=== PATIENT | male | born 1960 ===

== ENCOUNTER → 2016-11-29 | Outpatient (CLI) | payer BC, OTHER | END | disposition home or self-care (01) | LOC: GMAB 13:15 | PROVIDERS: ATTEND Family Medicine | DX: M79.1 Myalgia (principal); Z00.01 Encounter for general adult medical examination with abnormal findings ==

== ENCOUNTER → 2016-11-30 | Outpatient (CLI) | payer OTHER, BC ==
--- NOTE | 2016-12-01 08:57 | US ---
EXAM DESCRIPTION: Venous,Lower Extremity LT CLINICAL HISTORY: PEDAL EDEMA, LOCALIZED EDEMA COMPARISON: None Available. TECHNIQUE: Left lower extremity venous ultrasound was performed. Static david scale, color and spectral doppler images were saved to the patients medical record. FINDINGS: There is no DVT identified. There is normal color flow observed with good flow augmentation. All deep veins compress normally. IMPRESSION: Negative for DVT within the left lower extremity Electronically signed by: Juan Muñoz MD 12/01/2016 8:56 AM CDT
== END | disposition home or self-care (01) ==
LOC: US 14:40
PROVIDERS: ATTEND Family Medicine
DX: R60.0 Localized edema (principal)

== ENCOUNTER → 2017-01-10 | Outpatient (CLI) | payer BC | END | disposition home or self-care (01) | LOC: SL 20:30 | PROVIDERS: ATTEND Family Medicine | DX: G47.33 Obstructive sleep apnea (adult) (pediatric) (principal); R06.83 Snoring; F51.05 Insomnia due to other mental disorder ==

== ENCOUNTER 2017-02-02 06:01 | Day surgery (SDC) | payer BC ==
[2017-02-02] MEDS ORDERED: LACTATED RINGERS 1,000 ML ONE (06:26)
--- NOTE | 2017-02-02 09:12 | OP ---
DATE OF PROCEDURE: 02/02/17 PREPROCEDURE DIAGNOSIS: 1. Colorectal cancer screening in a patient at increased risk due to having a family history with a first degree relative, his mother, with colon cancer less than 60 years old. POSTPROCEDURE DIAGNOSIS: 1. Diverticulosis. 2. Internal hemorrhoids. PROCEDURE: 1. Colonoscopy. SURGEON: José Shipman MD. SEDATION: Monitored anesthesia care. ESTIMATED BLOOD LOSS: 0 mL. PROCEDURE: Informed consent was obtained prior to sedation. The preprocedure cardiopulmonary assessment was satisfactory. The patient was brought to the Endoscopy Suite and placed in the left lateral decubitus position. The patient was then sedated by the anesthesia team. Perianal and digital rectal exam revealed no abnormalities. The tip of the Olympus colonoscope was inserted into the rectum and advanced under direct visualization to the terminal ileum. The cecum was identified by the presence of the appendiceal orifice and ileocecal valve. Preparation of the colon was good. Upon reaching the terminal ileum, the endoscope was slowly withdrawn from the patient with careful attention paid to the entire colonic mucosa for the identification of any flat polyps or small vascular lesions. In the sigmoid colon, there was moderate diverticulosis. A retroflexed view of the anal verge showed small internal hemorrhoids. The endoscope was then withdrawn from the patient and the procedure terminated. RECOMMENDATION: 1. Discharge the patient home with escort. 2. Resume regular activities. 3. Advance to regular diet. 4. Repeat colonoscopy in five years due to his increased risk of cancer from his significant family history. #[id number] [facility]
[2017-02-02 11:00] VITALS: BP 138/86; TEMP 97.2; O2SAT 94
[2017-02-02] MEDS ORDERED: PROPOFOL 200 MG/20 ML VIAL IV ONE (12:00)
== END 2017-02-02 10:05 | disposition home or self-care (01) ==
LOC: AMB 06:01
PROVIDERS: ATTEND Internal Medicine Gastroenterology
DX: Z12.11 Encounter for screening for malignant neoplasm of colon (principal); K57.30 Diverticulosis of large intestine without perforation or abscess without bleeding; K64.8 Other hemorrhoids; E66.9 Obesity, unspecified; Z80.0 Family history of malignant neoplasm of digestive organs; Z87.891 Personal history of nicotine dependence; Z68.41 Body mass index [BMI] 40.0-44.9, adult
CPT/HCPCS: 00810; 45378; J3490; J7120

== ENCOUNTER → 2017-11-21 | Outpatient (CLI) | payer BC | LOC: SL 20:14 | PROVIDERS: ATTEND Family Medicine | DX: G47.33 Obstructive sleep apnea (adult) (pediatric) (principal); I10 Essential (primary) hypertension ==

== ENCOUNTER → 2018-06-22 | Outpatient (CLI) | payer BC | LOC: GMAE 12:00 | PROVIDERS: ATTEND Family Medicine | DX: Z00.00 Encounter for general adult medical examination without abnormal findings (principal); Z11.59 Encounter for screening for other viral diseases ==

== ENCOUNTER 2020-10-17 07:08 | Emergency (ER) | payer BC ==
[2020-10-17] MEDS ORDERED: PROMETHAZINE HCL 25 MG TAB PO ONE (07:17)
--- NOTE | 2020-10-17 08:15 | CT ---
EXAM DESCRIPTION: Head CLINICAL HISTORY: dizzziness 3days COMPARISON: None TECHNIQUE: Noncontrast transaxial CT images of the head are obtained from base to vertex. This exam was performed according to our departmental dose-optimization program, which includes automated exposure control, adjustment of the mA and/or kV according to patient size and/or use of iterative reconstruction technique. FINDINGS: The midline structures are not displaced. The sulci are age appropriate. The lateral, third, and fourth ventricles are normal in size, shape, and anatomic positioning. There is no evidence of mass, mass effect, hydrocephalus, or acute intracranial hemorrhage. No abnormal extra axial fluid collections are seen. Normal welsh-white differentiation is seen. The visualized bone windows show no depressed skull fracture or significant abnormality. The visualized paranasal sinuses shows mild mucosal thickening in the ethmoid and sphenoid sinuses. Frontal sinuses shows nondevelopment. Mastoid air cells are clear. IMPRESSION: 1. No acute abnormality is seen on noncontrast CT of the head. 2. Mild subacute to chronic ethmoid and sphenoid sinusitis Electronically signed by: Hung Christopher MD 10/17/2020 8:14 AM [facility]
--- NOTE | 2020-10-17 08:18 | RAD ---
EXAM DESCRIPTION: Abdomen Series CLINICAL HISTORY: dizz[place], [place] COMPARISON: Chest x-ray September 06, 2019. FINDINGS: AP supine and upright views of the abdomen show a nonspecific, nonobstructive bowel gas pattern with no evidence for free intraperitoneal air. No air-filled dilated loops of small bowel are seen. No significant air-fluid levels are identified. No obvious organomegaly is seen. No abnormal calcifications are seen in the expected location of the renal collecting systems. Increased volume of stool in the right transverse colon is seen. Single view of the chest shows cardiac silhouette and pulmonary vasculature to be within normal limits. Lungs are normally aerated and clear. Mild right apical pleural thickening without obvious bone destructive changes. This is stable from previous. Moderate right and mild left osteoarthritic changes of the hips are seen. Facet arthropathy is noted right greater than left at the L4-S1 levels. IMPRESSION: Nonspecific abdominal series Mild colon constipation or obstipation. Electronically signed by: Hung Christopher MD 10/17/2020 8:17 AM [facility]
[2020-10-17] MEDS ORDERED: SODIUM CHLORIDE 0.9% 1000ML 500 ML IVS ONE (09:00)
[2020-10-17] MEDS ORDERED: ACETYLCYSTEIN 20 % 6,000 MG/30 ML VIAL PO ONE (09:01)
[2020-10-17] MEDS ORDERED: LISINOPRIL 10 MG TAB PO ONE (09:02)
--- NOTE | 2020-10-17 10:31 | CT ---
EXAM DESCRIPTION: CTA Neck: Computed Tomography. CLINICAL HISTORY: dizziness 3 days COMPARISON: CTA of the head with IV contrast. TECHNIQUE: Spiral, axial 0.6 x 1.3 mm scans through the neck soft tissues after bolus infusion of IV contrast. 2.0 mm sagittal and coronal reconstructions. HID MIP images 0.6 mm rotating axis 3D volume rendering images 0.6 mm rotating axis . Percentage of stenosis recorded will be based upon NASCET criteria. Total Exam DLP: 375 mGy-cm. This exam was performed according to our departmental CT dose-optimization program which includes automated exposure control, adjustment of the mA and/or kV according to patient size and/or use of iterative reconstruction technique; to reduce radiation dose to as low as reasonably achievable (ALARA). FINDINGS: Technically difficult study due to decreased concentration of contrast material in the carotid and vertebral arteries and large size of the neck as well as scatter artifact from bony structures. No significant stenosis and no aneurysm in the left common carotid artery, bifurcation, or the cervical segment or skull base segment of the left ICA. Left ECA is also unremarkable. Origin of the left common carotid artery is not demonstrated with aortic arch is not imaged. No significant stenosis and no aneurysm in the right common carotid artery including the origin, bifurcation, cervical segment and skull base segments of the right ICA. Proximal right ECA and first order vessels are also unremarkable. No mass effect or vasculitis on these vessels. Limited visualization of the origins of the bilateral vertebral arteries. Limited visualization of the left vertebral artery in the vertebral artery foramina in the cervical spine. Caliber of the right vertebral artery is larger, extending to the junction to form the basilar artery. This basilar artery junction is to the left of midline. No aneurysms and no mass effect. Limited visualization of soft tissue due to large size of the body part and dental hardware. No enlarged lymph nodes, abnormal contrast enhancement, or soft tissue masses or fluid. Included lung showing minimal apical pleural thickening. Inflammatory mucosa, polyps, or cysts in the maxillary antra, with mucoperiosteal thickening in other paranasal sinuses.. IMPRESSION: Limited study due to patient large body habitus, dental hardware, bone density and decreased contrast density due to technical factors. No aneurysm, stenosis, or mass effect in the carotid and vertebral vessels from the base of the neck to the skull base. Right vertebral artery dominant compared to the left. Chronic paranasal sinusitis. Electronically signed by: Luiz Vicente MD 10/17/2020 10:30 AM [facility]
--- NOTE | 2020-10-17 10:53 | CT ---
EXAM DESCRIPTION: CTA Head: Computed Tomography. CLINICAL HISTORY: dizziness 3 days COMPARISON: CTA of the carotid and vertebral vessels of the neck on the same visit. CT scan of the head earlier on the same visit. TECHNIQUE: Spiral, axial 0.6 x 1.3 mm scans through the base of the skull and head after bolus infusion of IV contrast. 2.0 mm sagittal and coronal reconstructions. HID MIP images 0.6 mm rotating axis 3D volume rendering images 0.6 mm rotating axis . Percentage of stenosis recorded will be based upon NASCET criteria. Total Exam DLP: 526 mGy-cm. This exam was performed according to our departmental CT dose-optimization program which includes automated exposure control, adjustment of the mA and/or kV according to patient size and/or use of iterative reconstruction technique; to reduce radiation dose to as low as reasonably achievable (ALARA). FINDINGS: Bilateral ICAs with no calcification narrowing stenosis or aneurysm in the bilateral transverse foramina, pre-siphon segments, cavernous sinus segments, siphon segments and supraclinoid segments. Bilateral small posterior communicating arteries. Intracranial ICA bifurcations into the A1 segments of the MCA and NATALIYA vessels with no aneurysm stenosis or mass effect. No vasculitis. First order branches of the bilateral MCAs are unremarkable. Bilateral A2 segments of the anterior cerebral arteries are negative. Distal vertebral arteries show dominance of the right vertebral artery. Junction to form the basilar artery is to the left of midline. Bilateral PICA vessels are demonstrated. PICA vessels bilaterally and superior cerebellar vessels bilaterally with normal origins from the basilar artery. Bifurcation of the basilar artery to form the posterior cerebral arteries are unremarkable. Minimal contribution from the posterior communicating arteries. No aneurysm, no stenosis, no vasculitis, and no mass effect. Enhancement of the brain is unremarkable. No obvious vascular malformation, vasculitis, or mass effect. IMPRESSION: No significant vascular abnormality seen on CTA of the head. Physiologic enhancement of the included brain. No mass effect. Electronically signed by: Luiz Vicente MD 10/17/2020 10:52 AM [facility]
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
[2020-10-17 11:51] VITALS: BP 174/100; TEMP 97.6; O2SAT 96
== END 2020-10-17 11:51 | disposition home or self-care (01) ==
LOC: ER 07:08
DX: H83.02 Labyrinthitis, left ear (principal); J01.20 Acute ethmoidal sinusitis, unspecified; J01.30 Acute sphenoidal sinusitis, unspecified; H61.22 Impacted cerumen, left ear; K59.00 Constipation, unspecified; I10 Essential (primary) hypertension; Z79.899 Other long term (current) drug therapy; Z88.0 Allergy status to penicillin; Z86.16 Personal history of COVID-19
CPT/HCPCS: 36415; 36600; 70450; 70496; 70498; 74019; 80053; 80320; 81001; 82150; 82550; 82553; 82803; 82805; 83605; 83690; 83735; 83880; 84443; 84484; 85025; 85379; 85610; 85730; 87502; 93005; J7030; Q0169